=== PATIENT | female | born 1995 | race Hispanic/Latino ===

== ENCOUNTER 2017-05-10 13:05 | Emergency (ER) | payer BC ==
[2017-05-10 13:16] VITALS: RESP 18
[2017-05-10] MEDS ORDERED: Sodium Chloride 0.9% 1,000 ML IV STA (13:51)
--- NOTE | 2017-05-10 13:53 | ED PDOC ---
HPI: Female Pain Time Seen by Provider: 05/10/17 13:17 Chief Complaint (Nursing): Back Pain Chief Complaint (Provider): Right Flank Pain History Per: Patient History/Exam Limitations: no limitations Current Symptoms Are (Timing): Still Present Additional Complaint(s): Lilibeth is a 22 y/o female who presents to the ED complaining of right flank pain and urinary frequency x 2 days. Patient's father, a physician, is concerned of kidney stone because her sister has a history of them. She denies fever, chills, or pain when urinating. No nausea, vomiting or diarrhea. Patient denies vaginal discharge or vaginal bleeding. PMD: Can't remember name Past Medical History Reviewed: Historical Data, Nursing Documentation, Vital Signs Vital Signs: Last Vital Signs Temp 98.1 F 05/10/17 13:15 Pulse 76 05/10/17 13:15 Resp 18 05/10/17 13:15 BP 115/76 05/10/17 13:15 Pulse Ox 99 05/10/17 13:15 - Medical History PMH: Depression - Surgical History Surgical History: No Surg Hx - Family History Family History: States: No Known Family Hx - Living Arrangements Living Arrangements: With Family - Social History Current smoker - smoking cessation education provided: No Alcohol: None Drugs: Denies - Home Medications Home Medications: Ambulatory Orders Medication Instructions Recorded Ibuprofen [Motrin Tab] 800 mg PO Q8 PRN #20 tab 05/10/17 Levofloxacin [Levaquin] 500 mg PO DAILY #7 tablet 05/10/17 - Allergies Allergies/Adverse Reactions: Allergies Allergy/AdvReac Type Severity Reaction Status Date / Time delmy Allergy ANAPHYLAXIS Verified 05/10/17 13:13 Review of Systems ROS Statement: Except As Marked, All Systems Reviewed And Found Negative Constitutional: Negative for: Fever, Chills Cardiovascular: Negative for: Chest Pain Respiratory: Negative for: Shortness of Breath Gastrointestinal: Negative for: Nausea, Vomiting, Diarrhea Genitourinary Female: Positive for: Frequency. Negative for: Dysuria, Incontinence, Hematuria, Vaginal Discharge, Vaginal Bleeding, Pelvic Pain Musculoskeletal: Positive for: Back Pain (right flank) Physical Exam - Reviewed Nursing Documentation Reviewed: Yes Vital Signs Reviewed: Yes - Physical Exam Appears: Positive for: Well, Non-toxic, No Acute Distress Head Exam: Positive for: ATRAUMATIC Skin: Positive for: Normal Color, Warm. Negative for: Rash Eye Exam: Positive for: Normal appearance Cardiovascular/Chest: Positive for: Regular Rate, Rhythm Respiratory: Positive for: Normal Breath Sounds Gastrointestinal/Abdominal: Positive for: Normal Exam, Soft. Negative for: Tenderness Back: Positive for: R CVA Tenderness. Negative for: L CVA Tenderness, Vertebral Tenderness Extremity: Positive for: Normal ROM Neurologic/Psych: Positive for: Alert, Oriented. Negative for: Motor/Sensory Deficits - Laboratory Results Result Diagrams: 05/10/17 14:56 05/10/17 14:56 Urine POC: Negative Urine dip results: Positive for: Leukocyte Esterase (large), Blood (large). Negative for: Nitrate, Ketones, Glucose, Bilirubin, Protein - ECG O2 Sat by Pulse Oximetry: 99 (RA) Pulse Ox Interpretation: Normal - Other Rad CT abd and pelvis without contrast X-Ray: Read By Radiologist X-Ray Interpretation: see below TV US X-Ray: Read By Radiologist X-Ray Interpretation: see below Medical Decision Making Medical Decision Making: Time: 13:50 Initial Impression: 22 y/o female with a UTI, possible pyelonephritis vs. Kidney stone Initial Plan: --Urine Dip --Urine --CMP --CBC --Rocephin IV --Tylenol --CT abd and pelvis without contrast CT: FINDINGS: LOWER THORAX: Unremarkable. LIVER: Unremarkable. No gross lesion or ductal dilatation. GALLBLADDER AND BILE DUCTS: Unremarkable. PANCREAS: Unremarkable. No gross lesion or ductal dilatation. SPLEEN: Unremarkable. ADRENALS: Unremarkable. No mass. KIDNEYS AND URETERS: Unremarkable. No hydronephrosis. No solid mass. VASCULATURE: Unremarkable. No aortic aneurysm. BOWEL: Moderate retained feces. No evidence of bowel obstruction. APPENDIX: Normal appendix identified. PERITONEUM: Unremarkable. No free fluid. No free air. LYMPH NODES: Unremarkable. No enlarged lymph nodes. BLADDER: Unremarkable. REPRODUCTIVE: Unremarkable uterus. There is a tubular fluid-filled structure in the left adnexal region. In the absence of fluid- filled bowel wall elsewhere throughout the abdomen and pelvis, the possibility of a left hydrosalpinx should be considered and correlation with ultrasound examination should be considered. BONES: No acute fracture. OTHER FINDINGS: None. IMPRESSION: Possible left hydrosalpinx. No evidence of urinary calculus or urinary tract obstruction. No evidence of acute appendicitis. Otherwise unremarkable examination. Transvaginal ultrasound ordered based on above findings, patient agrees with further examination. US: FINDINGS: Examination markedly limited by bowel gas. UTERUS: Measures 5.9 x 3.8 x 3.0 cm. Anteverted. ENDOMETRIUM: Measures 6 mm in diameter. CERVIX: No cervical abnormality identified. RIGHT OVARY: Measures 2.6 x 2.7 x 2.1 cm. Blood flow is demonstrated. Follicles. LEFT OVARY: Measures 2.4 x 2.6 x 2.9 cm. Blood flow is demonstrated. Follicles. FREE FLUID: Small pelvic free fluid. OTHER FINDINGS: None. IMPRESSION: Examination markedly limited by bowel gas. Small pelvic free fluid. Patient aware of all diagnostic testing results. Pain returned so patient was given dose of Motrin which did help. Prescriptions given for Levaquin and Motrin. Advised fluids and follow up with PMD in 1-2 days. Patient is aware she can return to emergency department at any time if acutely worse. Scribe Attestation: Documented by Samson Arriaga, acting as a scribe for Morelia Christiansen PA-C. Provider Scribe Attestation: All medical record entries made by the Scribe were at my direction and personally dictated by me. I have reviewed the chart and agree that the record accurately reflects my personal performance of the history, physical exam, medical decision making, and the department course for this patient. I have also personally directed, reviewed, and agree with the discharge instructions and disposition. Disposition - Clinical Impression Clinical Impression: Pyelonephritis - Patient ED Disposition Is Patient to be Admitted: No Counseled Patient/Family Regarding: Studies Performed, Diagnosis, Need For Followup, Rx Given - Disposition Referrals: [facility] [Outside] Disposition: Routine/Home Disposition Time: 18:36 Condition: STABLE Additional Instructions: You were given 1 gram of IV rocephin in ED for infection. Please take rx meds as directed to completion. DRINK PLENTY OF WATER WHILE ON MEDS. Follow up with primary care doctor in 2-3 days or return any time if acutely worse. Prescriptions: Ibuprofen [Motrin Tab] 800 mg PO Q8 PRN #20 tab PRN Reason: Pain, Moderate (4-7) Levofloxacin [Levaquin] 500 mg PO DAILY #7 tablet Instructions: Kidney Infection, Urinary Tract Infections in Adults Forms: [employer] ([place]) Results - Lab Results Lab Results: 05/10/17 05/10/17 05/10/17 14:56 14:56 14:33 WBC 12.9 H RBC 4.62 Hgb 14.0 Hct 41.1 MCV 88.8 MCH 30.3 MCHC 34.1 RDW 14.0 Plt Count 214 MPV 8.6 Neut % (Auto) 79.6 H Lymph % (Auto) 11.1 L Gilchrist % (Auto) 8.9 Eos % (Auto) 0.2 Baso % (Auto) 0.2 Neut # (Auto) 10.3 H Lymph # (Auto) 1.4 Gilchrist # (Auto) 1.2 H Eos # (Auto) 0.0 Baso # (Auto) 0.0 Sodium 140 Potassium 3.9 Chloride 100 Carbon Dioxide 28 Anion Gap 16 BUN 11 Creatinine 0.7 Est GFR ( Amer) > 60 Est GFR (Non-Af Amer) > 60 Random Glucose 91 Calcium 9.1 Total Bilirubin 0.6 AST 42 H ALT 37 Alkaline Phosphatase 84 Total Protein 7.4 Albumin 4.3 Globulin 3.1 Albumin/Globulin Ratio 1.4 Urine Color Yellow Urine Clarity Cloudy Urine pH 8.0 Ur Specific [place] 1.012 Urine Protein 30 Urine Glucose (UA) Neg Urine Ketones Negative Urine Blood Moderate Urine Nitrate Negative Urine Bilirubin Negative Urine Urobilinogen 0.2-1.0 Ur Leukocyte Esterase Large Urine RBC (Auto) 113 H Urine Microscopic WBC 240 H Ur Squamous Epith Cells 4 Urine Bacteria Rare
[2017-05-10] MEDS ORDERED: cefTRIAXone (Rocephin) 1 gm Inj ONE (14:36)
[2017-05-10 14:44] LABS: SQUAMOUS EPITHIAL 4 /hpf (0-5); URINE BACTERIA RARE (<OCC); URINE BILIRUBIN NEGATIVE (NEGATIVE); URINE BLOOD MODERATE (NEGATIVE); URINE CLARITY CLOUDY (Clear); URINE COLOR YELLOW (YELLOW); URINE GLUCOSE (UA) NEG (Normal); URINE LEUKOCYTE ESTERASE LARGE Leu/uL (Negative); URINE NITRATE NEGATIVE (NEGATIVE); URINE PROTEIN 30 mg/dL (NEGATIVE); URINE UROBILINOGEN 0.2-1.0 mg/dL (0.2-1.0)
[2017-05-10 15:10] LABS: BASO % 0.2 % (0.0-2.0); EOS % 0.2 % (0.0-4.0); LYMPH # 1.4 K/uL (1.0-4.3); LYMPH % 11.1 % (20.0-40.0); MEAN CELL VOLUME 88.8 fl (81.0-99.0); MEAN CORPUSCULAR HEMOGLOBIN 30.3 pg (27.0-31.0); MEAN CORPUSCULAR HGB CONC 34.1 g/dL (33.0-37.0); MEAN PLATELET VOLUME 8.6 fl (7.2-11.7); MONO # 1.2 K/uL (0.0-0.8); MONO % 8.9 % (0.0-10.0); NEUT # 10.3 K/uL (1.8-7.0); NEUT % 79.6 % (50.0-75.0); RBC 4.62 Mil/uL (3.80-5.20); WHITE BLOOD COUNT 12.9 K/uL (4.8-10.8)
[2017-05-10 15:20] LABS: ALB/GLOB RATIO 1.4 (1.0-2.1); ALBUMIN 4.3 g/dL (3.5-5.0); ALT/SGPT 37 U/L (9-52); AST/SGOT 42 U/L (14-36); BLOOD UREA NITROGEN 11 mg/dl (7-17); CALCIUM 9.1 mg/dL (8.4-10.2); GFR AFRICAN-AMERICAN > 60; GFR NON-AFRICAN AMERICAN > 60
--- NOTE | 2017-05-10 15:20 | CT ---
PROCEDURE: CT Abdomen and Pelvis without intravenous contrast HISTORY: right flank pain, hematuria COMPARISON: None. TECHNIQUE: Without contrast.. Contrast Dose: 0 Radiation dose: Total exam DLP = 261.82 mGy-cm. This CT exam was performed using one or more of the following dose reduction techniques: Automated exposure control, adjustment of the mA and/or kV according to patient size, and/or use of iterative reconstruction technique. FINDINGS: LOWER THORAX: Unremarkable. LIVER: Unremarkable. No gross lesion or ductal dilatation. GALLBLADDER AND BILE DUCTS: Unremarkable. PANCREAS: Unremarkable. No gross lesion or ductal dilatation. SPLEEN: Unremarkable. ADRENALS: Unremarkable. No mass. KIDNEYS AND URETERS: Unremarkable. No hydronephrosis. No solid mass. VASCULATURE: Unremarkable. No aortic aneurysm. BOWEL: Moderate retained feces. No evidence of bowel obstruction. APPENDIX: Normal appendix identified. PERITONEUM: Unremarkable. No free fluid. No free air. LYMPH NODES: Unremarkable. No enlarged lymph nodes. BLADDER: Unremarkable. REPRODUCTIVE: Unremarkable uterus. There is a tubular fluid-filled structure in the left adnexal region. In the absence of fluid-filled bowel wall elsewhere throughout the abdomen and pelvis, the possibility of a left hydrosalpinx should be considered and correlation with ultrasound examination should be considered. BONES: No acute fracture. OTHER FINDINGS: None. IMPRESSION: Possible left hydrosalpinx. No evidence of urinary calculus or urinary tract obstruction. No evidence of acute appendicitis. Otherwise unremarkable examination.
--- NOTE | 2017-05-10 18:32 | US ---
HISTORY: r/o left hydrosalphinx COMPARISON: None available. TECHNIQUE: Transvaginal pelvic ultrasound FINDINGS: Examination markedly limited by bowel gas. UTERUS: Measures 5.9 x 3.8 x 3.0 cm. Anteverted. ENDOMETRIUM: Measures 6 mm in diameter. CERVIX: No cervical abnormality identified. RIGHT OVARY: Measures 2.6 x 2.7 x 2.1 cm. Blood flow is demonstrated. Follicles. LEFT OVARY: Measures 2.4 x 2.6 x 2.9 cm. Blood flow is demonstrated. Follicles. FREE FLUID: Small pelvic free fluid. OTHER FINDINGS: None. IMPRESSION: Examination markedly limited by bowel gas. Small pelvic free fluid.
[2017-05-10 18:49] VITALS: BP 117/76; PULSE 82; TEMP 98.6
[2017-05-10 18:52] VITALS: O2SAT 99
== END 2017-05-10 18:50 | disposition home or self-care (01) ==
LOC: H.ER 13:05
DX: N12 Tubulo-interstitial nephritis, not specified as acute or chronic (principal); N39.0 Urinary tract infection, site not specified; F32.9 Major depressive disorder, single episode, unspecified
CPT/HCPCS: 74176; 76830; 80053; 81003; 81025; 85025; 87086; 87181; 96374; 99283; J0696; J7040